=== PATIENT | female | born 1970 ===

== ENCOUNTER 2019-03-01 04:45 | Emergency (ER) | payer SELFPAY ==
[2019-03-01 04:56] VITALS: BP 132/85
--- NOTE | 2019-03-01 06:04 | Emergency Department Report ---
Minor Respiratory - HPI Chief Complaint: Upper Respiratory Infection Stated Complaint: COUGH Time Seen by Provider: 03/01/19 05:54 Minor Respiratory: Yes Rhinorrhea, Yes Able to Tolerate Fluids, Yes Cough, No Sore Throat, No Ear Pain, No Sick Contacts, No Hemoptysis, No Chest Pain, No Shortness of Breath, No Fever Other History: 48-year-old -Italian female presents to the emergency room for cough 5 days. Patient reports that she recently traveled from [facility]. Patient admits to nasal congestion and runny nose. Patient denies any fever or chills no nausea no vomiting. Patient does states that she has chest pain with cough. Patient has a past medical history of hepatitis B and is currently on medication for that. LMP: 02/26/19 ED Review of Systems ROS: Stated complaint: COUGH Other details as noted in HPI Comment: All other systems reviewed and negative ENT: congestion, other (rhinorrhea) Respiratory: cough ED Past Medical Hx - Past Medical History Previous Medical History?: No - Surgical History Past Surgical History?: No - Social History Smoking Status: Never Smoker Substance Use Type: None - Medications Home Medications: Home Medications Medication Instructions Recorded Confirmed Last Taken Type Benzonatate [Tessalon Perles] 100 mg PO Q8HR PRN #15 capsule 03/01/19 Unknown Rx Minor Respiratory Exam - Exam General: Vital signs noted. No distress. Alert and acting appropriately. HEENT: Yes Moist Mucous Membranes, No Pharyngeal Erythema, No Pharyngeal Exudates, No Rhinorrhea, No Conjuctival Injection, No Frontal Tenderness, No Maxillary Tenderness Ear: Neither TM Bulge, Neither TM Erythema, Neither EAC Pain, Neither EAC Discharge Neck: Yes Supple, No Adenopathy Lungs: Yes Good Air Exchange, No Wheezes, No Ronchi, No Stridor, No Cough, No Labored Respirations, No Retractions, No Use of Accessory Muscles, No Other Abnormal Lung Sounds Heart: Yes Regular, No Murmur Abdomen: Yes Normal Bowel Sounds, No Tenderness, No Peritoneal Signs Skin: No Rash, No Edema Neurologic: Alert and oriented, no deficits. Musculoskeletal: Unremarkable. ED Course Vital Signs 03/01/19 04:55 Temperature 98.2 F Pulse Rate 84 Respiratory 18 Rate Blood Pressure 132/85 O2 Sat by Pulse 100 Oximetry ED Medical Decision Making - Radiology Data Radiology results: report reviewed Patient: ISHAN PYLE MR#: [id number] : 1970 Acct:[id number] Age/Sex: 48 / F ADM Date: 03/01/19 Loc: ED Attending Dr: Ordering Physician: SANDEE VERGARA Date of Service: 03/01/19 Procedure(s): XR chest routine 2V Accession Number(s): [id number] cc: SANDEE VERGARA Fluoro Time In Minutes: CHEST 2 VIEWS INDICATION: cough. COMPARISON: None. FINDINGS: Support devices: None. Heart: Within normal limits. Lungs/Pleura: No acute air space or interstitial disease. No significant pleural effusion. IMPRESSION: No acute findings. Signer Name: Kenneth Mays MD Signed: 03/01/2019 6:21 AM Workstation Name: [id number] Transcribed By: ES Dictated By: Kenneth Mays MD Electronically Authenticated By: Kenneth Mays MD Signed Date/Time: 03/01/19620 DD/ 0 TD/TT: - Medical Decision Making 48-year-old -Italian female presents to the emergency room for cough 5 days. Patient reports that she recently traveled from [facility]. Patient admits to nasal congestion and runny nose. Patient denies any fever or chills no nausea no vomiting. Patient does states that she has chest pain with cough. Patient has a past medical history of hepatitis B and is currently on medication for that. LMP: 02/26/19 063 has been ordered. Critical care attestation.: If time is entered above; I have spent that time in minutes in the direct care of this critically ill patient, excluding procedure time. ED Disposition Clinical Impression: Cough Disposition: DC-01 TO HOME OR SELFCARE Is pt being admited?: No Does the pt Need Aspirin: No Condition: Stable Instructions: Acute Cough (ED) Additional Instructions: Chest x-ray was negative for any pneumonias or acute abnormalities. Please take cough medication as prescribed. Follow up with the primary care provider if his symptoms persist or gets worse. Prescriptions: Benzonatate [Tessalon Perles] 100 mg PO Q8HR PRN #15 capsule PRN Reason: Cough Referrals: INA JOSHI MD [Primary Care Provider] - 3-5 Days Forms: Work/School Release Form(ED)
--- NOTE | 2019-03-01 06:25 | XRay Report ---
CHEST 2 VIEWS INDICATION: cough. COMPARISON: None. FINDINGS: Support devices: None. Heart: Within normal limits. Lungs/Pleura: No acute air space or interstitial disease. No significant pleural effusion. IMPRESSION: No acute findings. Signer Name: Kenneth Mays MD Signed: 03/01/2019 6:21 AM Workstation Name: [id number]
== END 2019-03-01 06:44 | disposition home or self-care (01) ==
LOC: ED 04:45
DX: R05 Cough (principal)
CPT/HCPCS: 71046

== ENCOUNTER 2019-03-04 04:46 | Emergency (ER) | payer SELFPAY ==
[2019-03-04 04:58] VITALS: BP 130/79
[2019-03-04] MEDS ORDERED: LIDOCAINE VISCOUS 2% PO ONE (06:37)
[2019-03-04] MEDS ORDERED: DECADRON PO ONE (06:40)
--- NOTE | 2019-03-04 06:45 | Emergency Department Report ---
ED ENT HPI - General Chief complaint: Sore Throat Stated complaint: SORE THROAT Time Seen by Provider: 03/04/19 06:00 Source: patient Mode of arrival: Ambulatory Limitations: No Limitations - History of Present Illness MD complaint: sore throat -: days(s) (2) Location: throat Quality: aching, dull, constant Consistency: constant Improves with: none Worsens with: swallowing, eating Associated Symptoms: sore throat. denies: cough, gum swelling, toothache, pain with swallowing, tinnitus, hearing loss, discharge from ear, rhinorrhea - Related Data Previous Rx's Medication Instructions Recorded Last Taken Type Benzonatate [Tessalon Perles] 100 mg PO Q8HR PRN #15 capsule 03/01/19 Unknown Rx Amoxicillin/Potassium Clav 1 each PO BID #20 tablet 03/04/19 Unknown Rx [Augmentin 875-125 Tablet] Chlorhexidine Mouthwash [Peridex] 15 ml MM BID #473 bottle 03/04/19 Unknown Rx Lidocaine Viscous 2% 5 ml MM Q3H PRN #120 udc 03/04/19 Unknown Rx Allergies Allergy/AdvReac Type Severity Reaction Status Date / Time No Known Allergies Allergy Unverified 03/04/19 04:58 ED Dental HPI - General Chief complaint: Sore Throat Stated complaint: SORE THROAT Time Seen by Provider: 03/04/19 06:00 Source: patient Mode of arrival: Ambulatory Limitations: No Limitations - Related Data Previous Rx's Medication Instructions Recorded Last Taken Type Benzonatate [Tessalon Perles] 100 mg PO Q8HR PRN #15 capsule 03/01/19 Unknown Rx Amoxicillin/Potassium Clav 1 each PO BID #20 tablet 03/04/19 Unknown Rx [Augmentin 875-125 Tablet] Chlorhexidine Mouthwash [Peridex] 15 ml MM BID #473 bottle 03/04/19 Unknown Rx Lidocaine Viscous 2% 5 ml MM Q3H PRN #120 udc 03/04/19 Unknown Rx Allergies Allergy/AdvReac Type Severity Reaction Status Date / Time No Known Allergies Allergy Unverified 03/04/19 04:58 ED Review of Systems ROS: Stated complaint: SORE THROAT Other details as noted in HPI Comment: All other systems reviewed and negative ED Past Medical Hx - Past Medical History Previous Medical History?: Yes Additional medical history: Hepatitis B - Surgical History Past Surgical History?: No - Social History Smoking Status: Never Smoker Substance Use Type: None - Medications Home Medications: Home Medications Medication Instructions Recorded Confirmed Last Taken Type Benzonatate [Tessalon Perles] 100 mg PO Q8HR PRN #15 capsule 03/01/19 Unknown Rx Amoxicillin/Potassium Clav 1 each PO BID #20 tablet 03/04/19 Unknown Rx [Augmentin 875-125 Tablet] Chlorhexidine Mouthwash [Peridex] 15 ml MM BID #473 bottle 03/04/19 Unknown Rx Lidocaine Viscous 2% 5 ml MM Q3H PRN #120 udc 03/04/19 Unknown Rx ED Physical Exam - General Limitations: No Limitations General appearance: alert, in no apparent distress - Head Head exam: Present: atraumatic, normocephalic - Eye Eye exam: Present: normal appearance - ENT ENT exam: Present: mucous membranes moist, other (posterior pharyngeal swelling to the left tonsillar region. Airway still patent. Tongue and uvula are midline. No exudate noted. No drooling. Ears are clear. ) - Neck Neck exam: Present: normal inspection, tenderness. Absent: meningismus - Respiratory Respiratory exam: Present: normal lung sounds bilaterally. Absent: respiratory distress, wheezes - Cardiovascular Cardiovascular Exam: Present: regular rate, normal rhythm. Absent: systolic murmur, diastolic murmur, rubs, gallop - GI/Abdominal GI/Abdominal exam: Present: soft, normal bowel sounds - Extremities Exam Extremities exam: Present: normal inspection - Back Exam Back exam: Present: normal inspection - Neurological Exam Neurological exam: Present: alert, oriented X3 - Psychiatric Psychiatric exam: Present: normal affect, normal mood - Skin Skin exam: Present: warm, dry, intact, normal color. Absent: rash ED Course Vital Signs 03/04/19 04:53 Temperature 98.5 F Pulse Rate 78 Respiratory 20 Rate Blood Pressure 130/79 O2 Sat by Pulse 100 Oximetry Critical care attestation.: If time is entered above; I have spent that time in minutes in the direct care of this critically ill patient, excluding procedure time. ED Disposition Clinical Impression: Pharyngitis Disposition: DC-01 TO HOME OR SELFCARE Is pt being admited?: No Does the pt Need Aspirin: No Condition: Stable Instructions: Pharyngitis (ED), Pharyngitis in Children (ED), Strep Throat in Children (ED) Prescriptions: Amoxicillin/Potassium Clav [Augmentin 875-125 Tablet] 1 each PO BID #20 tablet Lidocaine Viscous 2% 5 ml MM Q3H PRN #120 udc PRN Reason: Pain, Moderate (4-6) Chlorhexidine Mouthwash [Peridex] 15 ml MM BID #473 bottle Referrals: [facility] [Provider Group] - 3-5 Days
== END 2019-03-04 07:02 | disposition home or self-care (01) ==
LOC: ED 04:46
DX: J02.9 Acute pharyngitis, unspecified (principal)
CPT/HCPCS: 99282; J1100

== ENCOUNTER 2020-12-05 17:07 | Emergency (ER) | payer OTHER ==
[2020-12-05 17:33] VITALS: BP 165/92
--- NOTE | 2020-12-05 18:30 | Emergency Department Report ---
ED General Adult HPI - General Chief complaint: Dental/Oral Stated complaint: GENERAL WEAKNESS Time Seen by Provider: 12/05/20 18:26 Source: patient Mode of arrival: Ambulatory Limitations: No Limitations - History of Present Illness Initial comments: 50-year-old female patient with history of hepatitis B presents to the emergency department with complaints of dental pain for 2 days. Pain is localized to the left upper molar. No trauma. Patient has been taking Advil with limited relief. Patient is not currently under the care of a dentist. Denies fever, chills, sore throat, dysphagia, facial swelling, hoarseness. Denies all other complaints at this time. Severity scale (0 -10): 10 - Related Data Previous Rx's Medication Instructions Recorded Last Taken Type Benzonatate [Tessalon Perles] 100 mg PO Q8HR PRN #15 capsule 03/01/19 Unknown Rx Amoxicillin/Potassium Clav 1 each PO BID #20 tablet 03/04/19 Unknown Rx [Augmentin 875-125 Tablet] Chlorhexidine Mouthwash [Peridex] 15 ml MM BID #473 bottle 03/04/19 Unknown Rx Lidocaine Viscous 2% 5 ml MM Q3H PRN #120 udc 03/04/19 Unknown Rx Naproxen 500 mg PO BID #20 tablet 12/05/20 Unknown Rx Nystas/Diphen/Xyl Visc/Mylanta 30 ml MM Q4H PRN #1 bottle 12/05/20 Unknown Rx [Magic Mouthwash] Penicillin Vk [Veetids TAB] 500 mg PO QID 7 Days tablet 12/05/20 Unknown Rx Allergies Allergy/AdvReac Type Severity Reaction Status Date / Time No Known Allergies Allergy Unverified 03/04/19 04:58 ED Review of Systems ROS: Stated complaint: GENERAL WEAKNESS Other details as noted in HPI Other: GENERAL: Negative for fever. ENT: Positive for dental pain. CARDIOVASCULAR: Negative for chest pain. PULMONARY: Negative for shortness of breath. GASTROINTESTINAL: Negative for abdominal pain. MUSCULOSKELETAL: Negative for back pain. NEUROLOGICAL: Negative for headache. INTEGUMENTARY: Negative for rash. ED Past Medical Hx - Past Medical History Previous Medical History?: No Additional medical history: Hepatitis B - Surgical History Past Surgical History?: No - Social History Smoking Status: Never Smoker Substance Use Type: None - Medications Home Medications: Home Medications Medication Instructions Recorded Confirmed Last Taken Type Benzonatate [Tessalon Perles] 100 mg PO Q8HR PRN #15 capsule 03/01/19 Unknown Rx Amoxicillin/Potassium Clav 1 each PO BID #20 tablet 03/04/19 Unknown Rx [Augmentin 875-125 Tablet] Chlorhexidine Mouthwash [Peridex] 15 ml MM BID #473 bottle 03/04/19 Unknown Rx Lidocaine Viscous 2% 5 ml MM Q3H PRN #120 udc 03/04/19 Unknown Rx Naproxen 500 mg PO BID #20 tablet 12/05/20 Unknown Rx Nystas/Diphen/Xyl Visc/Mylanta 30 ml MM Q4H PRN #1 bottle 12/05/20 Unknown Rx [Magic Mouthwash] Penicillin Vk [Veetids TAB] 500 mg PO QID 7 Days tablet 12/05/20 Unknown Rx ED Physical Exam - General Limitations: No Limitations - Other Other exam information: General: Awake, appropriately interactive, no acute distress. Dental: Oral mucosa is moist. Tenderness to palpation along the left upper molar. The gingiva appear normal. No fluctuance or evidence of periapical abscess. Sublingual, submental, and submandibular spaces all soft, without edema. No evidence for maxillary or buccal space abscess. No trismus. Patient is speaking in full sentences and handling secretions without difficulty. Neck: Supple. Full range of motion intact. Cardiovascular: Normal peripheral perfusion. Pulmonary: No respiratory distress. Patient is speaking normally without use of accessory muscles. Skin: No apparent rashes or lesions. Neurological: No facial asymmetry. Speech is clear. Follows commands. Patient is alert and oriented. Musculoskeletal: Moves all four extremities spontaneously with normal range of motion. Psych: Cooperative. Appropriate mood and affect. ED Course Vital Signs 12/05/20 17:30 Temperature 98.6 F Pulse Rate 84 Respiratory 18 Rate Blood Pressure 165/92 [Right] O2 Sat by Pulse 99 Oximetry ED Medical Decision Making - Medical Decision Making Differential diagnosis including but not limited to: dental abscess, Jonny's angina, dental caries, necrotizing gingivitis Patient presents to the emergency department with complaints of nontraumatic dental pain. She is afebrile. Vital signs are stable. She is speaking and handling her secretions without difficulty. No clinical evidence to suggest airway obstruction or systemic bacterial illness warranting further diagnostic work-up on an emergent basis at this time. Patient will be discharged home with antibiotics, appropriate analgesics, and referral to local dental clinics. Patient expressed understanding and is agreeable to plan of care. Strict return precautions provided. Repeat exam is unremarkable and benign. History, exam, diagnostic testing, and current condition do not suggest worrisome pathology to warrant further testing, continued ED treatment, admission, or surgical evaluation at this point. Given the low probability of a significant medical illness, it would be more likely to result in harm than benefit to perform further testing at this stage. Discussed findings, presumptive diagnosis, need for follow-up and specific signs/symptoms that should prompt immediate return to the emergency department. Instructions were explained in detail to the patient in addition to giving written discharge information. Patient expressed understanding and was given the opportunity to ask questions, all of which were satisfactorily answered prior to discharge home. Critical care attestation.: If time is entered above; I have spent that time in minutes in the direct care of this critically ill patient, excluding procedure time. ED Disposition Clinical Impression: Odontalgia Disposition: TO HOME OR SELFCARE Is pt being admited?: No Does the pt Need Aspirin: No Condition: Stable Instructions: Diet and Dental Disease Additional Instructions: Take Tylenol every 4 hours as needed for pain. Take Naprosyn twice daily with food as needed for pain. Use Magic Mouthwash as needed for pain. Take Penicillin with food as directed. Follow-up with dentist next week. See referral information below. Call Tuesday to schedule an appointment. Return to the emergency department immediately for new or worsening symptoms. Prescriptions: Nystas/Diphen/Xyl Visc/Mylanta [Magic Mouthwash] 30 ml MM Q4H PRN #1 bottle PRN Reason: dental pain Naproxen 500 mg PO BID #20 tablet Penicillin Vk [Veetids TAB] 500 mg PO QID 7 Days tablet Referrals: [facility] [Outside] - 3-[address] [facility] [Outside] - 3-5 Days Time of Disposition: 18:30
== END 2020-12-05 19:15 | disposition home or self-care (01) ==
LOC: ED 17:07
DX: K08.89 Other specified disorders of teeth and supporting structures (principal); Z79.899 Other long term (current) drug therapy
CPT/HCPCS: 99281